=== PATIENT | female | born 1970 | race Caucasian/White ===

== ENCOUNTER 2019-02-04 00:20 | Emergency (ER) | payer MEDICAID ==
[~2019-02-04] VITALS: Ht 162.6 cm; Wt 61.2 kg
[2019-02-04 00:25] VITALS: BP_SYST 136
--- NOTE | 2019-02-04 00:25 | NUR ---
Patient to ER bed 5 to gown for evaluation. Side rails up.
--- NOTE | 2019-02-04 00:29 | NUR ---
PT complains of pain/burning upon urination and frequency/urgency for the last two days. Pt has been taking AZO over the counter to help but does not relief pain. Pt denies fever, N/V or diarrhea. NO other injuries/complaints per patient or noted.
--- NOTE | 2019-02-04 00:40 | NUR ---
ER Dr. Palma at bedside examining patient.
[2019-02-04] MEDS ORDERED: IBUPROFEN 600 MG TABLET PO ONE (00:45)
[2019-02-04 01:01] LABS: BILIRUBIN,URINE NEGATIVE (NEGATIVE); BLOOD, URINE 1+ (NEGATIVE); CLARITY/URINE CLEAR (CLEAR); COLOR,URINE YELLOW (YELLOW); GLUCOSE,URINE NEGATIVE (NEGATIVE); KETONES,URINE NEGATIVE (NEGATIVE); LEUKOCYTE ESTERASE ,URINE 3+ (NEGATIVE); NITRITE, URINE NEGATIVE (NEGATIVE); PROTEIN URINE NEGATIVE (NEGATIVE); UROBILINOGEN,URINE 0.2 (0.2-1.0)
[2019-02-04 01:09] LABS: BACTERIA,URINE MODERATE /HPF (None Seen); WBC,URINE 80-100 /HPF (0-3)
[2019-02-04 01:17] VITALS: BP_SYST 136
--- NOTE | 2019-02-04 01:17 | NUR ---
Patient given written and verbal discharge instructions and verbalizes understanding. ER MD discussed with patient the results and treatment provided. Patient in stable condition. ID arm band removed. Rx of Keflex and Ibuprofen given. Patient educated on pain management and to follow up with PMD. Pain Scale 0. Opportunity for questions provided and answered. Medication side effect fact sheet provided.
== END 2019-02-04 01:17 | disposition home or self-care (01) ==
LOC: SED 00:20
DX: N39.0 Urinary tract infection, site not specified (principal); F17.200 Nicotine dependence, unspecified, uncomplicated
CPT/HCPCS: 81000-TC; 81025; 87086; 87186-TC; 99283